=== PATIENT | female | born 1960 | race Caucasian/White ===

== ENCOUNTER 2016-08-27 16:02 | Emergency (ER) | payer MEDICAID | END 2016-08-27 19:28 | disposition home or self-care (01) | LOC: ER 16:02 | DX: S20.219A Contusion of unspecified front wall of thorax, initial encounter (principal); S80.01XA Contusion of right knee, initial encounter; S80.12XA Contusion of left lower leg, initial encounter; V49.59XA Passenger injured in collision with other motor vehicles in traffic accident, initial encounter | CPT/HCPCS: 71020 ==